=== PATIENT | female | born 1935 | race Caucasian/White ===

== ENCOUNTER 2016-10-14 08:26 | Inpatient (IN) | payer MEDICARE, OTHER ==
[~2016-10-14] VITALS: Ht 152.4 cm; Wt 59.6 kg
[~2016-10-14 08:26] MED LIST: AMLO5TAB2 PO; CYCL5TAB PO; LISI-334 PO; METO100T11 PO; TRAM50TA PO; WARF5TAB7 PO
--- NOTE | 2016-10-14 08:29 | PHYS DOC ---
Past Medical History Past Medical History: A-Fib, CVA, High Cholesterol, Hypertension, Hypothyroid, UTI Past Surgical History: Cancer Surgery, Hysterectomy, Pacemaker Additional Past Surgical Histo: right ovary removal, back surgery Alcohol Use: None Drug Use: None Adult General HPI HPI Patient is a 81 year old female brought in by EMS for altered mental status that started shortly after taking her medications. Reports per shelter is that she received her morning medications and then very shortly afterward became unresponsive with pinpoint pupils. EMS arrived and gave her 2 mg of IV Narcan and she woke up 20 seconds afterwards. They said that she hadn't no response and was breathing shallow and slowly but perked up very shortly after the Narcan. Patient has no opioids on her medication list and shelter denies making any mistakes in her medications. Patient says that she feels horrible but has no specific complaints other than she has no idea what happened. Patient is having some dry heaving and had a very large bowel movement. Review of Systems Review of Systems Constitutional: Denies fever or chills [] Eyes: Denies change in visual acuity, redness, or eye pain [] HENT: Denies nasal congestion or sore throat [] Respiratory: Denies cough or shortness of breath [] Cardiovascular: No additional information not addressed in HPI [] GI: Denies abdominal pain. + nausea. No vomiting, bloody stools or diarrhea [] : Denies dysuria or hematuria [] Musculoskeletal: Denies back pain or joint pain [] Integument: Denies rash or skin lesions [] Neurologic: Denies headache, focal weakness or sensory changes [] Current Medications Current Medications Current Medications Medications (Trade) Dose Ordered Sig/Erin Start Time Stop Time Status Last Admin Dose Admin Ondansetron HCl (Zofran) 8 mg 1X ONCE 10/14/16 08:45 10/14/16 08:46 DC 10/14/16 08:57 8 MG Sodium Chloride 1,000 ml @ 1,000 mls/hr 1X ONCE 10/14/16 08:45 10/14/16 09:44 DC 10/14/16 09:02 1,000 MLS/HR Allergies Allergies Allergies Coded Allergies Type Severity Reaction Last Updated Verified codeine Allergy Intermediate Unknown 10/14/13 Yes meperidine Allergy Intermediate 10/14/13 Yes morphine Allergy Intermediate Nausea and Vomiting 03/06/14 Yes Physical Exam Physical Exam Constitutional: Well developed, well nourished, no acute distress, non-toxic appearance. [] HENT: Normocephalic, atraumatic, bilateral external ears normal, oropharynx moist, no oral exudates, nose normal. [] Eyes: PERRLA, EOMI, conjunctiva normal, no discharge. [] Neck: Normal range of motion, no tenderness, supple, no stridor. [] Cardiovascular:Heart rate regular rhythm, no murmur [] Lungs & Thorax: Bilateral breath sounds clear to auscultation [] Abdomen: Bowel sounds normal, soft, no tenderness, no masses, no pulsatile masses. [] Skin: Warm, dry, no erythema, no rash. [] Back: No tenderness, no CVA tenderness. [] Extremities: No tenderness, no cyanosis, no clubbing, ROM intact, no edema. [] Neurologic: Alert and oriented X 3, normal motor function, normal sensory function, no focal deficits noted. [] Current Patient Data Vital Signs Vital Signs Date Time Temp Pulse Resp B/P (MAP) Pulse Ox O2 Delivery O2 Flow Rate FiO2 10/14/16 09:30 108 24 108/64 (79) 97 10/14/16 08:26 98.8 Room Air 98.8 Lab Values Laboratory Tests Test 10/14/16 08:35 10/14/16 08:52 White Blood Count 5.8 x10^3/uL (4.0-11.0) Red Blood Count 4.05 x10^6/uL (3.50-5.40) Hemoglobin 12.6 g/dL (12.0-15.5) Hematocrit 38.4 % (36.0-47.0) Mean Corpuscular Volume 95 fL (79-100) Mean Corpuscular Hemoglobin 31 pg (25-35) Mean Corpuscular Hemoglobin Concent 33 g/dL (31-37) Red Cell Distribution Width 14.4 % (11.5-14.5) Platelet Count 362 x10^3/uL (140-400) Neutrophils (%) (Auto) 67 % (31-73) Lymphocytes (%) (Auto) 23 % (24-48) L Monocytes (%) (Auto) 9 % (0-9) Eosinophils (%) (Auto) 1 % (0-3) Basophils (%) (Auto) 1 % (0-3) Neutrophils # (Auto) 3.9 x10^3uL (1.8-7.7) Lymphocytes # (Auto) 1.3 x10^3/uL (1.0-4.8) Monocytes # (Auto) 0.5 x10^3/uL (0.0-1.1) Eosinophils # (Auto) 0.1 x10^3/uL (0.0-0.7) Basophils # (Auto) 0.1 x10^3/uL (0.0-0.2) Prothrombin Time 33.3 SEC (11.7-14.0) H Prothrombin Time INR 3.5 (0.8-1.1) H Sodium Level 136 mmol/L (136-145) Potassium Level 3.9 mmol/L (3.5-5.1) Chloride Level 102 mmol/L (98-107) Carbon Dioxide Level 26 mmol/L (21-32) Anion Gap 8 (6-14) Blood Urea Nitrogen 16 mg/dL (7-20) Creatinine 1.1 mg/dL (0.6-1.0) H Estimated GFR (Cockcroft-Gault) 47.7 BUN/Creatinine Ratio 15 (6-20) Glucose Level 170 mg/dL (70-99) H Calcium Level 9.0 mg/dL (8.5-10.1) Magnesium Level 1.9 mg/dL (1.8-2.4) Total Bilirubin 0.6 mg/dL (0.2-1.0) Aspartate Amino Transferase (AST) 24 U/L (15-37) Alanine Aminotransferase (ALT) 24 U/L (14-59) Alkaline Phosphatase 53 U/L (46-116) Creatine Kinase 32 U/L (26-192) Troponin I Quantitative < 0.017 ng/mL (0.000-0.055) Total Protein 6.9 g/dL (6.4-8.2) Albumin 3.6 g/dL (3.4-5.0) Albumin/Globulin Ratio 1.1 (1.0-1.7) Thyroid Stimulating Hormone (TSH) 8.278 uIU/mL (0.358-3.74) H Salicylates Level < 2.8 mg/dL (2.8-20.0) L Salicylate Last Dose Date Unknown Salicylate Last Dose Time Unknown Acetaminophen Level < 2 mcg/ml (10-30) L Acetaminophen Last Dose Date Unknown Acetaminophen Last Dose Time Unknown Ethyl Alcohol Level < 10 mg/dL (0-10) Urine Collection Type U cath Urine Color Evelin Urine Clarity Clear Urine pH 5.5 Urine Specific [place] 1.020 Urine Protein Negative mg/dL (NEG-TRACE) Urine Glucose (UA) Negative mg/dL (NEG) Urine Ketones (Stick) Negative mg/dL (NEG) Urine Blood Negative (NEG) Urine Nitrite Negative (NEG) Urine Bilirubin Small (NEG) Urine Urobilinogen Dipstick 0.2 mg/dL (0.2 mg/dL) Urine Leukocyte Esterase Negative (NEG) Urine RBC 0 /HPF (0-2) Urine WBC 0 /HPF (0-4) Urine Amorphous Sediment Present /HPF Urine Bacteria 0 /HPF (0-FEW) Urine Hyaline Casts Few /HPF Urine Opiates Screen Neg (NEG) Urine Methadone Screen Neg (NEG) Urine Barbiturates Neg (NEG) Urine Phencyclidine Screen Neg (NEG) Urine Amphetamine/Methamphetamine Neg (NEG) Urine Benzodiazepines Screen Neg (NEG) Urine Cocaine Screen Neg (NEG) Urine Cannabinoids Screen Neg (NEG) Urine Ethyl Alcohol Neg (NEG) Laboratory Tests 10/14/16 08:35 Laboratory Tests 10/14/16 08:35 EKG EKG A. fib at 66 bpm with leftward axis no obvious ST elevation or depression with inverted T waves in leads V4 through V6 Radiology/Procedures Radiology/Procedures Clinical Indication: Altered mental status. Technique: Study is dated October 14, 2016. CT images of the head were obtained from the skull base to the vertex without IV contrast. There are no comparison studies available. One or more of the following individualized dose reduction techniques were utilized for this examination: 1. Automated exposure control 2. Adjustment of the mA and/or kV according to patient size 3. Use of iterative reconstruction technique Findings: There is diffuse, symmetric prominence of the ventricles and subarachnoid spaces consistent with age-related parenchymal volume loss. There are areas of scattered decreased attenuation in the supratentorial white matter. While nonspecific, findings are likely secondary to small vessel ischemic disease. There is no hemorrhage, extraaxial fluid collection, mass, or midline shift. There is no large vascular distribution infarct. The posterior fossa and brain stem are unremarkable. Orbits are normal. The visualized paranasal sinuses are clear. There is no skull fracture appreciated on bone level images. Impression: No acute intracranial findings. Brain parenchymal volume loss and mild probable small vessel ischemic disease. DICTATED and SIGNED BY: DEVYN GAINES MD DATE: 10/14/16 1002 Course & Med Decision Making Course & Med Decision Making Despite the nursing homes claiming that there was no mistakes made she has a classic response to an opioid overdose as she responded to Narcan within 20 seconds and had pinpoint pupils. Patient had large bowel movement and continued to be nauseated in the emergency department. She is still slightly off per the son. Given her acute change and she is not completely back to baseline and will admit for further observation and treatment. Dragon Disclaimer Dragon Disclaimer This electronic medical record was generated, in whole or in part, using a voice recognition dictation system. Departure Departure Impression: Primary Impression: Opioid overdose Additional Impression: Encephalopathy acute Disposition: 09 ADMITTED INPATIENT Admitting Physician: Lucila Terry Condition: STABLE Referrals: [facility] GARLAND (PCP) Problem Qualifiers Primary Impression: Opioid overdose Encounter type: initial encounter Injury intent: accidental or unintentional Qualified Codes: T40.2X1A - Poisoning by other opioids, accidental (unintentional), initial encounter HERNANDO CASTRO DO October 14, 2016 08:29
[2016-10-14] MEDS ORDERED: ONDANSETRON PF 4 MG/2 ML VIAL. IV ONE (08:45)
[2016-10-14] MEDS ORDERED: IV NORMAL SALINE 1000ML BAG 1,000 ML IV ONE (08:45)
[2016-10-14 08:51] LABS: BASO # 0.1 x10^3/uL (0.0-0.2); BASO % 1 % (0-3); EOS % 1 % (0-3); HEMATOCRIT 38.4 % (36.0-47.0); HEMOGLOBIN 12.6 g/dL (12.0-15.5); LYMPH # 1.3 x10^3/uL (1.0-4.8); LYMPH % 23 % (24-48); MEAN CORPUSCULAR HEMOGLOBIN 31 pg (25-35); MEAN CORPUSCULAR HGB CONC 33 g/dL (31-37); MEAN CORPUSCULAR VOLUME 95 fL (79-100); MONO % 9 % (0-9); NEUT % 67 % (31-73); PLATELET COUNT 362 x10^3/uL (140-400); RED BLOOD COUNT 4.05 x10^6/uL (3.50-5.40); RED CELL DISTRIBUTION WIDTH 14.4 % (11.5-14.5); WHITE BLOOD COUNT 5.8 x10^3/uL (4.0-11.0)
[2016-10-14 09:02] LABS: INR 3.5 (0.8-1.1); PROTHROMBIN TIME PATIENT 33.3 SEC (11.7-14.0)
[2016-10-14 09:03] LABS: CREATININE 1.1 mg/dL (0.6-1.0); GFR 47.7; POTASSIUM 3.9 mmol/L (3.5-5.1)
[2016-10-14 09:06] LABS: ETHANOL < 10 mg/dL (0-10)
[2016-10-14 09:09] LABS: BILIRUBIN,URINE SMALL (NEG); GLUCOSE,URINE NEGATIVE (NEG); NITRITE,URINE NEGATIVE (NEG); PH,URINE 5.5; PROTEIN,URINE NEGATIVE (NEG-TRACE); UROBILINOGEN,URINE 0.2 mg/dL (0.2 mg/dL)
[2016-10-14 09:09] LABS: ALBUMIN 3.6 g/dL (3.4-5.0); ALBUMIN/GLOBULIN RATIO 1.1 (1.0-1.7); MAGNESIUM 1.9 mg/dL (1.8-2.4); TOTAL BILIRUBIN 0.6 mg/dL (0.2-1.0); TOTAL PROTEIN 6.9 g/dL (6.4-8.2)
--- NOTE | 2016-10-14 09:09 | ACF ---
Admission Forms Criteria DRUG INGESTION OR OVERDOSE Clinical Indications for Admission to Inpatient Care ( Place 'X' for any and all applicable criteria): Admission is indicated for severe toxicity as indicated by ANY ONE of the following(1)(2)(3)(4)(5)(6): [X]I. Inpatient admission required rather than observation care (Also use Drug Ingestion or Overdose: Observation Care guideline as appropriate) because of ANY ONE of the following: [X]a) Altered mental status that is severe or persistent [ ]b) Clinical finding (eg, metabolic acidosis, hypoglycemia, bradycardia) that is severe or persistent [ ]c) Toxic drug level that is persistent [ ]d) Psychiatric risk status not acceptable for outpatient management [ ]e) Continuous intravenous infusion of anticoagulation, platelet inhibitor, vasoactive, or antiarrhythmic medication (15)(16) [ ]f) Other condition, treatment or monitoring requiring inpatient admission [ ]II. Respiratory abnormalities [ ]III. Specific finding indicating severe and likely prolonged drug toxicity [ ]IV. Hemodynamic instability [ ]V. Dangerous arrhythmia [ ]. Hypertension requiring inpatient treatment Extended stay beyond goal length of stay may be needed for (4): [ ]a) Neurologic or respiratory compromise [ ]b) Hemodynamic instability [ ]c) Persistent toxic drug levels (25) [ ]d) Severe drug toxicities or complications [ ]e) Ongoing antidote treatment (eg, acetaminophen overdose)(5) [ ]f) Older patients(65 years or older) The original [employer] content created by [employer] has been revised. The portions of the content which have been revised are identified through the use of italic text or in bold, and [facility] [employer] has neither reviewed nor approved the modified material. All other unmodified content is copyright [facility] [employer]. Please see references footnoted in the original [facility] edition 2016 Admission Criteria Met?: Yes SP MCHUGH October 14, 2016 09:09
[2016-10-14 09:27] LABS: BACTERIA,URINE 0 /HPF (0-FEW); RBC,URINE 0 /HPF (0-2); WBC,URINE 0 /HPF (0-4)
[2016-10-14 09:30] LABS: BARBITURATES NEG (NEG); BENZODIAZEPINES NEG (NEG); CANNABINOIDS NEG (NEG); COCAINE NEG (NEG); METHADONE NEG (NEG); OPIATES NEG (NEG); PHENCYCLIDINE NEG (NEG)
--- NOTE | 2016-10-14 10:06 | RAD ---
Clinical Indication: Altered mental status. Technique: Study is dated October 14, 2016. CT images of the head were obtained from the skull base to the vertex without IV contrast. There are no comparison studies available. One or more of the following individualized dose reduction techniques were utilized for this examination: 1. Automated exposure control 2. Adjustment of the mA and/or kV according to patient size 3. Use of iterative reconstruction technique Findings: There is diffuse, symmetric prominence of the ventricles and subarachnoid spaces consistent with age-related parenchymal volume loss. There are areas of scattered decreased attenuation in the supratentorial white matter. While nonspecific, findings are likely secondary to small vessel ischemic disease. There is no hemorrhage, extraaxial fluid collection, mass, or midline shift. There is no large vascular distribution infarct. The posterior fossa and brain stem are unremarkable. Orbits are normal. The visualized paranasal sinuses are clear. There is no skull fracture appreciated on bone level images. Impression: No acute intracranial findings. Brain parenchymal volume loss and mild probable small vessel ischemic disease.
[2016-10-14] MEDS ORDERED: ONDANSETRON PF 4 MG/2 ML VIAL. IV PRN (10:15)
[2016-10-14 11:15] VITALS: BP 112/73
[2016-10-14 11:40] VITALS: BP 125/68
--- NOTE | 2016-10-14 11:40 | EKG ---
[facility] [address] [place] [address] Test Date: 2016-10-14 Test Time: 10:33:59 Pat Name: DANO MARTINEZ Department: Room: 652 1 Gender: F Bulk Fluids Handler: : [id number] Requested By: HERNANDO CASTRO Order Number: [id number] Reading MD: Concha Salgado Measurements Intervals [place] Rate: 111 P: 77 NV: 86 QRS: -5 QRSD: 80 T: -99 QT: 370 QTc: 507 Interpretive Statements CORONARY SINUS RHYTHM LEFTWARD AXIS ABNORMAL ECG RI6.01 Unconfirmed report No previous ECG available for comparison Electronically Signed On 10-15-2016 21:32:36 CDT by Concha Salgado
[2016-10-14] MEDS ORDERED: PROCHLORPERAZINE 10 MG/2 ML VIAL. IV PRN (12:15)
[2016-10-14] MEDS ORDERED: traMADol 50 MG TABLET PO PRN (12:15)
--- NOTE | 2016-10-14 12:24 | PDOC1 ---
History and Physical Date of Admission Date of Admission DATE: 10/14/16 TIME: 12:15 Identification/Chief Complaint Chief Complaint diarrhea, vomting post narcan at er Problems: Source Source: Caregiver, Chart review, Patient History of Present Illness History of Present Illness Hx obtained mostly from ER MD 81 y.o male resident of [facility], apparently might have been given the wrong medication this AM by staff there. Pt claims the pill look different, after which pt became completely somnolent. Staff denies giving her any AM meds today, BUt at ER arrival, was given narcan and did wake her up fully, Was about to be dcd back to [place] but when diarrhea and vomiting at ER hence decided to admit this elderly on 6th floor for oBS BUt within 30 mins of arrival, on tele monitor, seemed to have at least 6 runs of non sustained vtach, occurred few secs apart. Pt denies palpitation, complains of grumbling stomach,. EKG 12 lead done, shows atrial fib, RVR rate low 100s. 2 Bros at bedside (not the best hostorian either), relays indwelling pacer x 7 yrs now, PCP dr Hernandez but no OP cards, LOoking at home meds, on rate controlling agents and warfarin, INR is 3.5 Past Medical History Cardiovascular: AFIB, HTN Past Surgical History Past Surgical History: Other (pacer) Family History Family History: Hypertension Social History Smoke: No ALCOHOL: none Drugs: None Current Problem List Problem List Problems Medical Problems: (1) Encephalopathy acute Status: Acute (2) Opioid overdose Status: Acute Problems: Current Medications Current Medications Current Medications Sodium Chloride 1,000 ml @ 1,000 mls/hr 1X ONCE IV Last administered on 09:02; Start 10/14/16 at 08:45; Stop 10/14/16 at 09:44; Status DC Ondansetron HCl (Zofran) 8 mg 1X ONCE IV Last administered on 10/14/16 08:57 ; Start 10/14/16 at 08:45; Stop 10/14/16 at 08:46; Status DC Ondansetron HCl (Zofran) 4 mg PRN Q8HRS PRN IV NAUSEA/VOMITING Last administered on 10/14/16 10:36; Start 10/14/16 at 10:15; Stop 10/15/16 at 10:14 Active Scripts Active Reported Tramadol Hcl 50 Mg Tablet 50 Mg PO Warfarin Sodium 5 Mg Tablet 5 Mg PO Metoprolol Succinate 100 Mg Tab.er.24h 100 Mg PO Lisinopril 20 Mg Tablet 20 Mg PO Amlodipine Besylate 5 Mg Tablet 5 Mg PO Cyclobenzaprine Hcl 5 Mg Tablet 5 Mg PO Allergies Allergies: Coded Allergies: codeine (Verified Allergy, Intermediate, Unknown, 10/14/13) meperidine (Verified Allergy, Intermediate, 10/14/13) morphine (Verified Allergy, Intermediate, Nausea and Vomiting, 03/06/14) ROS General: No: Chills, Night Sweats, Fatigue, Malaise, Appetite, Other PSYCHOLOGICAL ROS: No: Anxiety, Behavioral Disorder, Concentration difficultie , Decreased libido, Depression, Disorientation, Hallucinations, Hostility, Irritablity, Memory difficulties, Mood Swings, Obsessive thoughts, Physical abuse, Sexual abuse, Sleep disturbances, Suicidal ideation, Other Eyes: No Blurry vision, No Decreased vision, No Double vision, No Dry eyes, No Excessive tearing, No Eye Pain, No Itchy Eyes, No Loss of vision, No Photophobia , No Scotomata, No Uses contacts, No Uses glasses, No Other HEENT: No: Heacaches, Visual Changes, Hearing change, Nasal congestion, Nasal discharge, Oral lesions, Sinus pain, Sore Throat, Epistaxis, Sneezing, Snoring, Tinnitus, Vertigo, Vocal changes, Other ALLERGY AND IMMUNOLOGY: No: Hives, Insect Bite Sensitivity, Itchy/Watery Eyes, Nasal Congestion, Post Nasal Drip, Seasonal Allergies, Other Hematological and Lymphatic: No: Bleeding Problems, Blood Clots, Blood Transfusions, Brusing, Night Sweats, Pallor, Swollen Lymph Nodes, Other ENDOCRINE: No: Breast Changes, Galactorrhea, Hair Pattern Changes, Hot Flashes , Malaise/lethargy, Mood Swings, Palpitations, Polydipsia/polyuria, Skin Changes , Temperature Intolerance, Unexpected Weight Changes, Other Breast: No New/Changing Breast Lumps, No Nipple changes, No Nipple discharge, No Other Respiratory: No: Cough, Hemoptysis, Orthopnea, Pleuritic Pain, Shortness of breath, SOB with excertion, Sputum Changes, Stridor, Tachypnea, Wheezing, Other Cardiovascular: No Chest Pain, No Palpitations, No Orthopnea, No Paroxysmal Noc. Dyspnea, No Edema, No Lt Headedness, No Other Gastrointestinal: Yes Nausea, Yes Abdominal Pain Genitourinary: No Dysuria, No Frequency, No Incontinence, No Hematuria, No Retention, No Discharge, No Urgency, No Pain, No Flank Pain, No Other, No , No , No , No , No , No , No Musculoskeletal: No Gait Disturbance, No Joint Pain, No Joint Stiffness, No Joint Swelling, No Muscle Pain, No Muscular Weakness, No Pain In:, No Swelling In:, No Other Neurological: No Behavorial Changes, No Bowel/Bladder ControlChng, No Confusion , No Dizziness, No Gait Disturbance, No Headaches, No Impaired Coord/balance, No Memory Loss, No Numbness/Tingling, No Seizures, No Speech Problems, No Tremors, No Visual Changes, No Weakness, No Other Skin: No Dry Skin, No Eczema, No Hair Changes, No Lumps, No Mole Changes, No Mottling, No Nail Changes, No Pruritus, No Rash, No Skin Lesion Changes, No Other, No Acne Physical Exam General: Alert, Oriented X3, Cooperative, No acute distress HEENT: Atraumatic, PERRLA Lungs: Clear to auscultation, Normal air movement Heart: S1S2, RRR, no thrills, no rubs, no gallops, no murmurs Cardiovascular: S1, Other (Irregularly irreg) Breasts: Normal Abdomen: Normal bowel sounds, Soft, No tenderness, No hepatosplenomegaly, No masses Rectal Exam: not examined, mass PELVIC: Nml ext genitalia Extremities: No clubbing, No cyanosis, No edema, Normal pulses, No tenderness/ swelling Skin: No rashes, No breakdown, No significant lesion Neuro: Normal gait, Normal speech, Strength at 5/5 X4 ext, Normal tone, Sensation intact, Cranial nerves 3-12 NL, Reflexes 2+ Psych/Mental Status: Mental status NL, Mood NL Vitals Vitals Vital Signs Date Time Temp Pulse Resp B/P (MAP) Pulse Ox O2 Delivery O2 Flow Rate FiO2 10/14/16 11:40 102 16 125/68 (87) 96 Room Air 10/14/16 11:15 97.5 97.5 Labs Labs Laboratory Tests Test 10/14/16 08:35 10/14/16 08:52 White Blood Count 5.8 x10^3/uL (4.0-11.0) Red Blood Count 4.05 x10^6/uL (3.50-5.40) Hemoglobin 12.6 g/dL (12.0-15.5) Hematocrit 38.4 % (36.0-47.0) Mean Corpuscular Volume 95 fL (79-100) Mean Corpuscular Hemoglobin 31 pg (25-35) Mean Corpuscular Hemoglobin Concent 33 g/dL (31-37) Red Cell Distribution Width 14.4 % (11.5-14.5) Platelet Count 362 x10^3/uL (140-400) Neutrophils (%) (Auto) 67 % (31-73) Lymphocytes (%) (Auto) 23 % (24-48) Monocytes (%) (Auto) 9 % (0-9) Eosinophils (%) (Auto) 1 % (0-3) Basophils (%) (Auto) 1 % (0-3) Neutrophils # (Auto) 3.9 x10^3uL (1.8-7.7) Lymphocytes # (Auto) 1.3 x10^3/uL (1.0-4.8) Monocytes # (Auto) 0.5 x10^3/uL (0.0-1.1) Eosinophils # (Auto) 0.1 x10^3/uL (0.0-0.7) Basophils # (Auto) 0.1 x10^3/uL (0.0-0.2) Prothrombin Time 33.3 SEC (11.7-14.0) Prothromb Time International Ratio 3.5 (0.8-1.1) Sodium Level 136 mmol/L (136-145) Potassium Level 3.9 mmol/L (3.5-5.1) Chloride Level 102 mmol/L (98-107) Carbon Dioxide Level 26 mmol/L (21-32) Anion Gap 8 (6-14) Blood Urea Nitrogen 16 mg/dL (7-20) Creatinine 1.1 mg/dL (0.6-1.0) Estimated GFR (Cockcroft-Gault) 47.7 BUN/Creatinine Ratio 15 (6-20) Glucose Level 170 mg/dL (70-99) Calcium Level 9.0 mg/dL (8.5-10.1) Magnesium Level 1.9 mg/dL (1.8-2.4) Total Bilirubin 0.6 mg/dL (0.2-1.0) Aspartate Amino Transf (AST/SGOT) 24 U/L (15-37) Alanine Aminotransferase (ALT/SGPT) 24 U/L (14-59) Alkaline Phosphatase 53 U/L (46-116) Creatine Kinase 32 U/L (26-192) Troponin I Quantitative < 0.017 ng/mL (0.000-0.055) Total Protein 6.9 g/dL (6.4-8.2) Albumin 3.6 g/dL (3.4-5.0) Albumin/Globulin Ratio 1.1 (1.0-1.7) Thyroid Stimulating Hormone (TSH) 8.278 uIU/mL (0.358-3.74) Salicylates Level < 2.8 mg/dL (2.8-20.0) Salicylate Last Dose Date Unknown Salicylate Last Dose Time Unknown Acetaminophen Level < 2 mcg/ml (10-30) Acetaminophen Last Dose Date Unknown Acetaminophen Last Dose Time Unknown Ethyl Alcohol Level < 10 mg/dL (0-10) Urine Collection Type U cath Urine Color Evelin Urine Clarity Clear Urine pH 5.5 Urine Specific [place] 1.020 Urine Protein Negative mg/dL (NEG-TRACE) Urine Glucose (UA) Negative mg/dL (NEG) Urine Ketones (Stick) Negative mg/dL (NEG) Urine Blood Negative (NEG) Urine Nitrite Negative (NEG) Urine Bilirubin Small (NEG) Urine Urobilinogen Dipstick 0.2 mg/dL (0.2 mg/dL) Urine Leukocyte Esterase Negative (NEG) Urine RBC 0 /HPF (0-2) Urine WBC 0 /HPF (0-4) Urine Amorphous Sediment Present /HPF Urine Bacteria 0 /HPF (0-FEW) Urine Hyaline Casts Few /HPF Urine Opiates Screen Neg (NEG) Urine Methadone Screen Neg (NEG) Urine Barbiturates Neg (NEG) Urine Phencyclidine Screen Neg (NEG) Urine Amphetamine/Methamphetamine Neg (NEG) Urine Benzodiazepines Screen Neg (NEG) Urine Cocaine Screen Neg (NEG) Urine Cannabinoids Screen Neg (NEG) Urine Ethyl Alcohol Neg (NEG) Laboratory Tests Test 10/14/16 08:35 10/14/16 08:52 White Blood Count 5.8 x10^3/uL (4.0-11.0) Red Blood Count 4.05 x10^6/uL (3.50-5.40) Hemoglobin 12.6 g/dL (12.0-15.5) Hematocrit 38.4 % (36.0-47.0) Mean Corpuscular Volume 95 fL (79-100) Mean Corpuscular Hemoglobin 31 pg (25-35) Mean Corpuscular Hemoglobin Concent 33 g/dL (31-37) Red Cell Distribution Width 14.4 % (11.5-14.5) Platelet Count 362 x10^3/uL (140-400) Neutrophils (%) (Auto) 67 % (31-73) Lymphocytes (%) (Auto) 23 % (24-48) Monocytes (%) (Auto) 9 % (0-9) Eosinophils (%) (Auto) 1 % (0-3) Basophils (%) (Auto) 1 % (0-3) Neutrophils # (Auto) 3.9 x10^3uL (1.8-7.7) Lymphocytes # (Auto) 1.3 x10^3/uL (1.0-4.8) Monocytes # (Auto) 0.5 x10^3/uL (0.0-1.1) Eosinophils # (Auto) 0.1 x10^3/uL (0.0-0.7) Basophils # (Auto) 0.1 x10^3/uL (0.0-0.2) Prothrombin Time 33.3 SEC (11.7-14.0) Prothromb Time International Ratio 3.5 (0.8-1.1) Sodium Level 136 mmol/L (136-145) Potassium Level 3.9 mmol/L (3.5-5.1) Chloride Level 102 mmol/L (98-107) Carbon Dioxide Level 26 mmol/L (21-32) Anion Gap 8 (6-14) Blood Urea Nitrogen 16 mg/dL (7-20) Creatinine 1.1 mg/dL (0.6-1.0) Estimated GFR (Cockcroft-Gault) 47.7 BUN/Creatinine Ratio 15 (6-20) Glucose Level 170 mg/dL (70-99) Calcium Level 9.0 mg/dL (8.5-10.1) Magnesium Level 1.9 mg/dL (1.8-2.4) Total Bilirubin 0.6 mg/dL (0.2-1.0) Aspartate Amino Transf (AST/SGOT) 24 U/L (15-37) Alanine Aminotransferase (ALT/SGPT) 24 U/L (14-59) Alkaline Phosphatase 53 U/L (46-116) Creatine Kinase 32 U/L (26-192) Troponin I Quantitative < 0.017 ng/mL (0.000-0.055) Total Protein 6.9 g/dL (6.4-8.2) Albumin 3.6 g/dL (3.4-5.0) Albumin/Globulin Ratio 1.1 (1.0-1.7) Thyroid Stimulating Hormone (TSH) 8.278 uIU/mL (0.358-3.74) Salicylates Level < 2.8 mg/dL (2.8-20.0) Salicylate Last Dose Date Unknown Salicylate Last Dose Time Unknown Acetaminophen Level < 2 mcg/ml (10-30) Acetaminophen Last Dose Date Unknown Acetaminophen Last Dose Time Unknown Ethyl Alcohol Level < 10 mg/dL (0-10) Urine Collection Type U cath Urine Color Evelin Urine Clarity Clear Urine pH 5.5 Urine Specific [place] 1.020 Urine Protein Negative mg/dL (NEG-TRACE) Urine Glucose (UA) Negative mg/dL (NEG) Urine Ketones (Stick) Negative mg/dL (NEG) Urine Blood Negative (NEG) Urine Nitrite Negative (NEG) Urine Bilirubin Small (NEG) Urine Urobilinogen Dipstick 0.2 mg/dL (0.2 mg/dL) Urine Leukocyte Esterase Negative (NEG) Urine RBC 0 /HPF (0-2) Urine WBC 0 /HPF (0-4) Urine Amorphous Sediment Present /HPF Urine Bacteria 0 /HPF (0-FEW) Urine Hyaline Casts Few /HPF Urine Opiates Screen Neg (NEG) Urine Methadone Screen Neg (NEG) Urine Barbiturates Neg (NEG) Urine Phencyclidine Screen Neg (NEG) Urine Amphetamine/Methamphetamine Neg (NEG) Urine Benzodiazepines Screen Neg (NEG) Urine Cocaine Screen Neg (NEG) Urine Cannabinoids Screen Neg (NEG) Urine Ethyl Alcohol Neg (NEG) VTE Prophylaxis Ordered VTE Prophylaxis Devices: Yes VTE Pharmacological Prophylaxi: Yes Assessment/Plan Assessment/Plan 1. Toxic encephalopathy likely from a narcotic like agent, accidental -outside of hospital event, RESPONDED to narcan 2. Emesis and diarrhea post narcan 3. Known atrial fib, in RVR now, on AC 4. NOn sustained vtach 5. ELderly, geriatric, fall risk, mild to mod PCM 6. Mildy supratherapeutic INR PLAN: TRansfer to CVC RAte control the arrhythmia HOld coumadin INR kobe Anti emetics Send for stool studies if diarrhea persist BMP kobe if diarrhea persists IVF if diarrhea persists SCDs PT/OT Resume PO rate controlling agents from home Dw multiple RN, Dr. Delia Andino time - was a rapid YESSICA ARNETT MD October 14, 2016 12:24
[2016-10-14] MEDS ORDERED: FURO20TA3 PO (13:22)
[2016-10-14] MEDS ORDERED: LACT1CAP2 PO (13:22)
[2016-10-14] MEDS ORDERED: LEVO137T3 PO (13:24)
[2016-10-14] MEDS ORDERED: MULT1CAP15 PO (13:26)
[2016-10-14] MEDS ORDERED: CHOL2000 PO (13:27)
[2016-10-14] MEDS ORDERED: COLE1TAB2 PO (13:28)
[2016-10-14] MEDS ORDERED: WARF2TAB7 PO (13:30)
[2016-10-14] MEDS ORDERED: WARF3TAB7 PO (13:31)
[2016-10-14] MEDS ORDERED: NYST15CR TP (13:44)
[2016-10-14] MEDS ORDERED: DOCU100C5 PO (13:48)
[2016-10-14] MEDS ORDERED: MECL25TA3 PO (13:48)
[2016-10-14] MEDS ORDERED: ACET500T68 PO (13:48)
[2016-10-14] MEDS ORDERED: POLY255P PO (13:50)
[2016-10-14 14:31] VITALS: BP 107/56
--- NOTE | 2016-10-14 14:42 | EKG ---
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
--- NOTE | 2016-10-14 15:26 | PDOC2 ---
CONSULT Date of Consult Date of Consult DATE: 10/14/16 TIME: 15:17 Reason for Consult Reason for Consult: arrhythmias Referring Physician Referring Physician: Dr. Terry Identification/Chief Complaint Chief Complaint Decreased level of consciousness Source Source: Chart review History of Present Illness Reason for Visit: The patient is an 81 year old female who had decreased level of consciousness last evening and was sent from her longterm. She reportedly received Narcan thatb improved her mental status. She also has a history of atrial fib. and a pacemaker. The patient had brief episodes of NSVT by report. At present she is comfortable and alert. She is in a regular paced rhythm. She denies chest pain, SOB or dizziness. Past Medical History Cardiovascular: AFIB, HTN Past Surgical History Past Surgical History: Other (pacemaker) Family History Family History: Hypertension Social History No ALCOHOL: none Drugs: None Current Problem List Problem List Problems Medical Problems: (1) Encephalopathy acute Status: Acute (2) Opioid overdose Status: Acute Current Medications Current Medications Current Medications Sodium Chloride 1,000 ml @ 1,000 mls/hr 1X ONCE IV Last administered on 09:02; Start 10/14/16 at 08:45; Stop 10/14/16 at 09:44; Status DC Ondansetron HCl (Zofran) 8 mg 1X ONCE IV Last administered on 10/14/16 08:57 ; Start 10/14/16 at 08:45; Stop 10/14/16 at 08:46; Status DC Ondansetron HCl (Zofran) 4 mg PRN Q8HRS PRN IV NAUSEA/VOMITING Last administered on 10/14/16 10:36; Start 10/14/16 at 10:15; Stop 10/15/16 at 10:14 Amlodipine Besylate (Norvasc) 5 mg DAILY PO ; Start 10/15/16 at 09:00 Lisinopril (Prinivil) 20 mg DAILY PO ; Start 10/15/16 at 09:00 Metoprolol Succinate (Toprol Xl) 100 mg DAILY PO ; Start 10/15/16 at 09:00 Tramadol HCl (Ultram) 50 mg PRN TID PRN PO pain; Start 10/14/16 at 12:15 Warfarin Sodium (Coumadin Per Pharmacy) 1 each PRN DAILY PRN MC SEE COMMENTS Last administered on 5/21/17at 14:08; Start 10/14/16 at 12:15 Warfarin Sodium (Coumadin - No Dose Today) 1 each 1X WARF ONCE MC ; Start 10/14 at 16:00; Stop 10/14/16 at 16:01 Prochlorperazine Edisylate (Compazine) 10 mg PRN Q6HRS PRN IV NAUSEA/VOMITING; Start 10/14/16 at 12:15 Active Scripts Active Reported Polyethylene Glycol 3350 255 Gm Powder 17 Gm PO PRN DAILY PRN Docusate Sodium 100 Mg Capsule 1 Cap PO PRN BID PRN Acetaminophen 500 Mg Tablet 2 Tab PO PRN QID PRN Meclizine Hcl 25 Mg Tablet 1 Tab PO PRN TID PRN Nystatin 15 Gm Cream..g. 1 Chris TP PRN PRN Warfarin Sodium 3 Mg Tablet 1 Tab PO QMWF Warfarin Sodium 2 Mg Tablet 1 Tab PO QTUTHSASU Colestipol Hcl 1 Gm Tablet 1 Gm PO BID Vitamin D (Cholecalciferol (Vitamin D3)) 2,000 Unit Capsule 1 Cap PO DAILY Multivitamins (Multivitamin) 1 Each Capsule 1 Each PO DAILY Levothyroxine Sodium 137 Mcg Tablet 137 Mcg PO DAILYAC Furosemide 20 Mg Tablet 1 Tab PO DAILY Acidophilus (Lactobacillus Acidophilus) 1 Each Capsule 1 Each PO DAILY Tramadol Hcl 50 Mg Tablet 50 Mg PO Metoprolol Succinate ( Xl ) (Metoprolol Succinate) 100 Mg Tab.er.24h 100 Mg PO Lisinopril 20 Mg Tablet 20 Mg PO Amlodipine Besylate 5 Mg Tablet 5 Mg PO Cyclobenzaprine Hcl 5 Mg Tablet 5 Mg PO Allergies Allergies: Coded Allergies: codeine (Verified Allergy, Intermediate, Unknown, 10/14/13) meperidine (Verified Allergy, Intermediate, 10/14/13) morphine (Verified Allergy, Intermediate, Nausea and Vomiting, 03/06/14) ROS General: YES: Fatigue Physical Exam General: No acute distress HEENT: Atraumatic Lungs: Clear to auscultation Heart: Regular rate Abdomen: Normal bowel sounds Extremities: No clubbing Vitals VITALS Vital Signs Date Time Temp Pulse Resp B/P (MAP) Pulse Ox O2 Delivery O2 Flow Rate FiO2 10/14/16 14:31 97.4 64 18 107/56 (73) 95 Room Air 97.4 Labs Labs Laboratory Tests Test 10/14/16 08:35 10/14/16 08:52 White Blood Count 5.8 x10^3/uL (4.0-11.0) Red Blood Count 4.05 x10^6/uL (3.50-5.40) Hemoglobin 12.6 g/dL (12.0-15.5) Hematocrit 38.4 % (36.0-47.0) Mean Corpuscular Volume 95 fL (79-100) Mean Corpuscular Hemoglobin 31 pg (25-35) Mean Corpuscular Hemoglobin Concent 33 g/dL (31-37) Red Cell Distribution Width 14.4 % (11.5-14.5) Platelet Count 362 x10^3/uL (140-400) Neutrophils (%) (Auto) 67 % (31-73) Lymphocytes (%) (Auto) 23 % (24-48) Monocytes (%) (Auto) 9 % (0-9) Eosinophils (%) (Auto) 1 % (0-3) Basophils (%) (Auto) 1 % (0-3) Neutrophils # (Auto) 3.9 x10^3uL (1.8-7.7) Lymphocytes # (Auto) 1.3 x10^3/uL (1.0-4.8) Monocytes # (Auto) 0.5 x10^3/uL (0.0-1.1) Eosinophils # (Auto) 0.1 x10^3/uL (0.0-0.7) Basophils # (Auto) 0.1 x10^3/uL (0.0-0.2) Prothrombin Time 33.3 SEC (11.7-14.0) Prothromb Time International Ratio 3.5 (0.8-1.1) Sodium Level 136 mmol/L (136-145) Potassium Level 3.9 mmol/L (3.5-5.1) Chloride Level 102 mmol/L (98-107) Carbon Dioxide Level 26 mmol/L (21-32) Anion Gap 8 (6-14) Blood Urea Nitrogen 16 mg/dL (7-20) Creatinine 1.1 mg/dL (0.6-1.0) Estimated GFR (Cockcroft-Gault) 47.7 BUN/Creatinine Ratio 15 (6-20) Glucose Level 170 mg/dL (70-99) Calcium Level 9.0 mg/dL (8.5-10.1) Magnesium Level 1.9 mg/dL (1.8-2.4) Total Bilirubin 0.6 mg/dL (0.2-1.0) Aspartate Amino Transf (AST/SGOT) 24 U/L (15-37) Alanine Aminotransferase (ALT/SGPT) 24 U/L (14-59) Alkaline Phosphatase 53 U/L (46-116) Creatine Kinase 32 U/L (26-192) Troponin I Quantitative < 0.017 ng/mL (0.000-0.055) Total Protein 6.9 g/dL (6.4-8.2) Albumin 3.6 g/dL (3.4-5.0) Albumin/Globulin Ratio 1.1 (1.0-1.7) Thyroid Stimulating Hormone (TSH) 8.278 uIU/mL (0.358-3.74) Salicylates Level < 2.8 mg/dL (2.8-20.0) Salicylate Last Dose Date Unknown Salicylate Last Dose Time Unknown Acetaminophen Level < 2 mcg/ml (10-30) Acetaminophen Last Dose Date Unknown Acetaminophen Last Dose Time Unknown Ethyl Alcohol Level < 10 mg/dL (0-10) Urine Collection Type U cath Urine Color Evelin Urine Clarity Clear Urine pH 5.5 Urine Specific [place] 1.020 Urine Protein Negative mg/dL (NEG-TRACE) Urine Glucose (UA) Negative mg/dL (NEG) Urine Ketones (Stick) Negative mg/dL (NEG) Urine Blood Negative (NEG) Urine Nitrite Negative (NEG) Urine Bilirubin Small (NEG) Urine Urobilinogen Dipstick 0.2 mg/dL (0.2 mg/dL) Urine Leukocyte Esterase Negative (NEG) Urine RBC 0 /HPF (0-2) Urine WBC 0 /HPF (0-4) Urine Amorphous Sediment Present /HPF Urine Bacteria 0 /HPF (0-FEW) Urine Hyaline Casts Few /HPF Urine Opiates Screen Neg (NEG) Urine Methadone Screen Neg (NEG) Urine Barbiturates Neg (NEG) Urine Phencyclidine Screen Neg (NEG) Urine Amphetamine/Methamphetamine Neg (NEG) Urine Benzodiazepines Screen Neg (NEG) Urine Cocaine Screen Neg (NEG) Urine Cannabinoids Screen Neg (NEG) Urine Ethyl Alcohol Neg (NEG) Laboratory Tests Test 10/14/16 08:35 10/14/16 08:52 White Blood Count 5.8 x10^3/uL (4.0-11.0) Red Blood Count 4.05 x10^6/uL (3.50-5.40) Hemoglobin 12.6 g/dL (12.0-15.5) Hematocrit 38.4 % (36.0-47.0) Mean Corpuscular Volume 95 fL (79-100) Mean Corpuscular Hemoglobin 31 pg (25-35) Mean Corpuscular Hemoglobin Concent 33 g/dL (31-37) Red Cell Distribution Width 14.4 % (11.5-14.5) Platelet Count 362 x10^3/uL (140-400) Neutrophils (%) (Auto) 67 % (31-73) Lymphocytes (%) (Auto) 23 % (24-48) Monocytes (%) (Auto) 9 % (0-9) Eosinophils (%) (Auto) 1 % (0-3) Basophils (%) (Auto) 1 % (0-3) Neutrophils # (Auto) 3.9 x10^3uL (1.8-7.7) Lymphocytes # (Auto) 1.3 x10^3/uL (1.0-4.8) Monocytes # (Auto) 0.5 x10^3/uL (0.0-1.1) Eosinophils # (Auto) 0.1 x10^3/uL (0.0-0.7) Basophils # (Auto) 0.1 x10^3/uL (0.0-0.2) Prothrombin Time 33.3 SEC (11.7-14.0) Prothromb Time International Ratio 3.5 (0.8-1.1) Sodium Level 136 mmol/L (136-145) Potassium Level 3.9 mmol/L (3.5-5.1) Chloride Level 102 mmol/L (98-107) Carbon Dioxide Level 26 mmol/L (21-32) Anion Gap 8 (6-14) Blood Urea Nitrogen 16 mg/dL (7-20) Creatinine 1.1 mg/dL (0.6-1.0) Estimated GFR (Cockcroft-Gault) 47.7 BUN/Creatinine Ratio 15 (6-20) Glucose Level 170 mg/dL (70-99) Calcium Level 9.0 mg/dL (8.5-10.1) Magnesium Level 1.9 mg/dL (1.8-2.4) Total Bilirubin 0.6 mg/dL (0.2-1.0) Aspartate Amino Transf (AST/SGOT) 24 U/L (15-37) Alanine Aminotransferase (ALT/SGPT) 24 U/L (14-59) Alkaline Phosphatase 53 U/L (46-116) Creatine Kinase 32 U/L (26-192) Troponin I Quantitative < 0.017 ng/mL (0.000-0.055) Total Protein 6.9 g/dL (6.4-8.2) Albumin 3.6 g/dL (3.4-5.0) Albumin/Globulin Ratio 1.1 (1.0-1.7) Thyroid Stimulating Hormone (TSH) 8.278 uIU/mL (0.358-3.74) Salicylates Level < 2.8 mg/dL (2.8-20.0) Salicylate Last Dose Date Unknown Salicylate Last Dose Time Unknown Acetaminophen Level < 2 mcg/ml (10-30) Acetaminophen Last Dose Date Unknown Acetaminophen Last Dose Time Unknown Ethyl Alcohol Level < 10 mg/dL (0-10) Urine Collection Type U cath Urine Color Evelin Urine Clarity Clear Urine pH 5.5 Urine Specific [place] 1.020 Urine Protein Negative mg/dL (NEG-TRACE) Urine Glucose (UA) Negative mg/dL (NEG) Urine Ketones (Stick) Negative mg/dL (NEG) Urine Blood Negative (NEG) Urine Nitrite Negative (NEG) Urine Bilirubin Small (NEG) Urine Urobilinogen Dipstick 0.2 mg/dL (0.2 mg/dL) Urine Leukocyte Esterase Negative (NEG) Urine RBC 0 /HPF (0-2) Urine WBC 0 /HPF (0-4) Urine Amorphous Sediment Present /HPF Urine Bacteria 0 /HPF (0-FEW) Urine Hyaline Casts Few /HPF Urine Opiates Screen Neg (NEG) Urine Methadone Screen Neg (NEG) Urine Barbiturates Neg (NEG) Urine Phencyclidine Screen Neg (NEG) Urine Amphetamine/Methamphetamine Neg (NEG) Urine Benzodiazepines Screen Neg (NEG) Urine Cocaine Screen Neg (NEG) Urine Cannabinoids Screen Neg (NEG) Urine Ethyl Alcohol Neg (NEG) Assessment/Plan Assessment/Plan 1. Probable metabolic encephalopathy. Improved. Continue present treatment. 2. Pacemaker. Normal function on tele. Will interrogate. 3. Atrial fibrillation. On anticoagulation. Tele,. Continue medications. 4. NSVT. Rhythm now stable. Lab pending. ECHO. Continue present medications. Thank you for allowing us to participate in the care of your patient. JUSTEN GERONIMO MD October 14, 2016 15:26
[2016-10-14] MEDS ORDERED: NYSTATIN 100,000 UNIT/GM TOPICAL CREAM 15GM TUBE. TP PRN (15:45)
[2016-10-14] MEDS ORDERED: NYST15PO9 TP (15:54)
[2016-10-14] MEDS ORDERED: NYSTATIN TOPICAL POWDER 15GM BOTTLE. TP PRN (16:00)
[2016-10-14] MEDS ORDERED: MECLIZINE HCL 12.5 MG TABLET. PO PRN (16:00)
[2016-10-14 18:59] VITALS: BP 111/58
[2016-10-14] MEDS: COLESTIPOL HCL 1 GM TABLET PO SCH (21:17)
[2016-10-14 23:10] VITALS: BP 113/54
[2016-10-15] VITALS (8 sets, daily range): BP systolic 114–158; BP diastolic 58–81
[2016-10-15 04:08] LABS: BASO % 0 % (0-3); EOS % 1 % (0-3); HEMATOCRIT 34.7 % (36.0-47.0); HEMOGLOBIN 11.5 g/dL (12.0-15.5); LYMPH # 1.4 x10^3/uL (1.0-4.8); LYMPH % 21 % (24-48); MEAN CORPUSCULAR HEMOGLOBIN 31 pg (25-35); MEAN CORPUSCULAR HGB CONC 33 g/dL (31-37); MEAN CORPUSCULAR VOLUME 95 fL (79-100); MONO % 14 % (0-9); NEUT % 64 % (31-73); PLATELET COUNT 321 x10^3/uL (140-400); RED BLOOD COUNT 3.67 x10^6/uL (3.50-5.40); WHITE BLOOD COUNT 6.6 x10^3/uL (4.0-11.0)
[2016-10-15 04:38] LABS: CALCIUM 8.9 mg/dL (8.5-10.1); GFR 53.2; POTASSIUM 4.2 mmol/L (3.5-5.1)
[2016-10-15] MEDS: MULTIVITAMIN with MINERAL TABLET. PO SCH (08:43)
[2016-10-15] MEDS: amLODIPine BESYLATE 5 MG TABLET PO SCH (08:44)
[2016-10-15] MEDS: CHOLECALCIFEROL (VITAMIN D3) 1,000 UNIT TABLET PO SCH (08:47)
[2016-10-15] MEDS: METOPROLOL SUCC 24HR ER 100 MG TAB.ER.24H. PO SCH (08:47)
[2016-10-15] MEDS: ACETAMINOPHEN 500 MG TABLET PO PRN (08:47)
[2016-10-15] MEDS: LACTOBACILLUS ACIDOPH & BULGAR 1 TABLET. PO SCH (08:48)
[2016-10-15] MEDS: LISINOPRIL 20 MG TABLET PO SCH (08:48)
[2016-10-15] MEDS: LEVOTHYROXINE 137 MCG TABLET PO SCH (08:48)
[2016-10-15] MEDS: COLESTIPOL HCL 1 GM TABLET PO SCH ×2 (08:48→20:44)
[2016-10-15] MEDS ORDERED: FUROSEMIDE 20 MG TABLET PO SCH (09:00)
[2016-10-15 10:58] LABS: PROTHROMBIN TIME PATIENT 36.7 SEC (11.7-14.0)
--- NOTE | 2016-10-15 11:33 | PDOC ---
CARDIO Progress Notes Date and Time Date of Service 10/15/2016 Time of Evaluation 1010 Subjective Subjective: No Chest Pain, No shortness of breath, No Palpitations, No Dizziness Vitals Vitals Vital Signs Date Time Temp Pulse Resp B/P (MAP) Pulse Ox O2 Delivery O2 Flow Rate FiO2 10/15/16 08:48 71 134/58 10/15/16 08:05 Room Air 10/15/16 07:00 98.1 18 94 98.1 Weight Weight [ ] Input and Output Intake and Output Intake and Output 10/15/16 07:00 Intake Total 400 ml Output Total 200 ml Balance 200 ml Intake Oral 400 ml Output Urine Total 200 ml # Voids 1 Laboratory Labs Laboratory Tests Test 10/15/16 03:35 10/15/16 10:30 White Blood Count 6.6 x10^3/uL (4.0-11.0) Red Blood Count 3.67 x10^6/uL (3.50-5.40) Hemoglobin 11.5 g/dL (12.0-15.5) Hematocrit 34.7 % (36.0-47.0) Mean Corpuscular Volume 95 fL (79-100) Mean Corpuscular Hemoglobin 31 pg (25-35) Mean Corpuscular Hemoglobin Concent 33 g/dL (31-37) Red Cell Distribution Width 14.0 % (11.5-14.5) Platelet Count 321 x10^3/uL (140-400) Neutrophils (%) (Auto) 64 % (31-73) Lymphocytes (%) (Auto) 21 % (24-48) Monocytes (%) (Auto) 14 % (0-9) Eosinophils (%) (Auto) 1 % (0-3) Basophils (%) (Auto) 0 % (0-3) Neutrophils # (Auto) 4.2 x10^3uL (1.8-7.7) Lymphocytes # (Auto) 1.4 x10^3/uL (1.0-4.8) Monocytes # (Auto) 0.9 x10^3/uL (0.0-1.1) Eosinophils # (Auto) 0.0 x10^3/uL (0.0-0.7) Basophils # (Auto) 0.0 x10^3/uL (0.0-0.2) Sodium Level 135 mmol/L (136-145) Potassium Level 4.2 mmol/L (3.5-5.1) Chloride Level 102 mmol/L (98-107) Carbon Dioxide Level 26 mmol/L (21-32) Anion Gap 7 (6-14) Blood Urea Nitrogen 15 mg/dL (7-20) Creatinine 1.0 mg/dL (0.6-1.0) Estimated GFR (Cockcroft-Gault) 53.2 Glucose Level 100 mg/dL (70-99) Calcium Level 8.9 mg/dL (8.5-10.1) Magnesium Level 1.8 mg/dL (1.8-2.4) Prothrombin Time 36.7 SEC (11.7-14.0) Prothromb Time International Ratio 4.0 (0.8-1.1) Physical Exam HEENT: Neck Supple W Full Motion Chest: Symmetric LUNGS: Clear to Auscultation Heart: S1S2, RRR (Atrial flutter) Abdomen: Soft N/T Extremities: No Calf Tenderness Neurology: alert, oriented, follow commands, other (very [place]) Assessment Assessment 1. Syncope: likely vagal episode with underlying low intravascular volume. Passed out per son (DPOA) while sitting up, no injury 2. 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 3. Likely chronic AFIB/flutter: 140s with activity but otherwise resting at 70s with occasional V pacing, no significant arrhythmia overnight 4. Arrhythmia: no notable NSVT per review. Likely complexes were pacer complexes. Recently seen by Dr. Wolfe at [facility] and was told to be doing fine and normal device functioning 5. Hypothyroidism: TSH 8.2, on replacement, per PCP. 6. HTN: controlled 7. Chronic diarrhea: per PCP Recommendations 1. Baseline TTE 2. Check orthostatic readings 3. Interrogate device to confirm any significant arrhythmias. 4. Currently on warfarin for stroke prevention, hold dose today. Continue with toprol 5. 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 Risks and benefits would need to be reevaluated vs ASA use. Will defer to outpt network engineer administrator. 6. If orthostasis is confirmed, will need to decrease norvasc dosing and promote bill hose use and abdominal binder, and keep track of PO hydration. 7. Also would need to avoid colestipol or use alternative if possible otherwise will need to reschedule as this will bind to meds which is likely why TSH is not therapeutic. 8. Recommend stopping 20 mg lasix especially with her chronic diarrhea. MINESH LIM RIPSAW OPERATOR October 15, 2016 11:33
--- NOTE | 2016-10-15 13:39 | PDOC ---
PROGRESS NOTES Chief Complaint Chief Complaint cc: ? syncope A/P 1. Syncope: possible Vasovagal, Pacer interrogation pending. 2. 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 3. Supra therapeutic INR: Hold INR, No bleeding risk 4. hx of Arrhythmia: She denies any complaints now 5. Hypothyroidism: TSH 8.2, on replacement, repeat TSH in few weeks, practise taking in AM. 6. HTN: controlled 7. Chronic diarrhea: now constipation Hold colestipol at home, Vitals Vitals Vital Signs Date Time Temp Pulse Resp B/P (MAP) Pulse Ox O2 Delivery O2 Flow Rate FiO2 10/15/16 11:59 76 14 125/67 (86) 95 Room Air 10/15/16 11:23 97.9 97.9 Physical Exam General: Alert, Oriented X3, No acute distress Heart: Regular rate, Normal S1, Normal S2 Lungs: Clear Abdomen: Normal bowel sounds Extremities: No clubbing Skin: No rashes, No breakdown, No significant lesion Labs LABS Laboratory Tests Test 10/15/16 03:35 10/15/16 10:30 White Blood Count 6.6 x10^3/uL (4.0-11.0) Red Blood Count 3.67 x10^6/uL (3.50-5.40) Hemoglobin 11.5 g/dL (12.0-15.5) Hematocrit 34.7 % (36.0-47.0) Mean Corpuscular Volume 95 fL (79-100) Mean Corpuscular Hemoglobin 31 pg (25-35) Mean Corpuscular Hemoglobin Concent 33 g/dL (31-37) Red Cell Distribution Width 14.0 % (11.5-14.5) Platelet Count 321 x10^3/uL (140-400) Neutrophils (%) (Auto) 64 % (31-73) Lymphocytes (%) (Auto) 21 % (24-48) Monocytes (%) (Auto) 14 % (0-9) Eosinophils (%) (Auto) 1 % (0-3) Basophils (%) (Auto) 0 % (0-3) Neutrophils # (Auto) 4.2 x10^3uL (1.8-7.7) Lymphocytes # (Auto) 1.4 x10^3/uL (1.0-4.8) Monocytes # (Auto) 0.9 x10^3/uL (0.0-1.1) Eosinophils # (Auto) 0.0 x10^3/uL (0.0-0.7) Basophils # (Auto) 0.0 x10^3/uL (0.0-0.2) Sodium Level 135 mmol/L (136-145) Potassium Level 4.2 mmol/L (3.5-5.1) Chloride Level 102 mmol/L (98-107) Carbon Dioxide Level 26 mmol/L (21-32) Anion Gap 7 (6-14) Blood Urea Nitrogen 15 mg/dL (7-20) Creatinine 1.0 mg/dL (0.6-1.0) Estimated GFR (Cockcroft-Gault) 53.2 Glucose Level 100 mg/dL (70-99) Calcium Level 8.9 mg/dL (8.5-10.1) Magnesium Level 1.8 mg/dL (1.8-2.4) Prothrombin Time 36.7 SEC (11.7-14.0) Prothromb Time International Ratio 4.0 (0.8-1.1) Assessment and Plan Assessmemt and Plan Problems Medical Problems: (1) Encephalopathy acute Status: Acute (2) Opioid overdose Status: Acute Problems: Comment Review of Relevant I have reviewed the following items kenny (where applicable) has been applied. Labs Laboratory Tests Test 10/14/16 08:35 10/14/16 08:52 10/15/16 03:35 10/15/16 10:30 White Blood Count 5.8 x10^3/uL (4.0-11.0) 6.6 x10^3/uL (4.0-11.0) Red Blood Count 4.05 x10^6/uL (3.50-5.40) 3.67 x10^6/uL (3.50-5.40) Hemoglobin 12.6 g/dL (12.0-15.5) 11.5 g/dL (12.0-15.5) Hematocrit 38.4 % (36.0-47.0) 34.7 % (36.0-47.0) Mean Corpuscular Volume 95 fL (79-100) 95 fL (79-100) Mean Corpuscular Hemoglobin 31 pg (25-35) 31 pg (25-35) Mean Corpuscular Hemoglobin Concent 33 g/dL (31-37) 33 g/dL (31-37) Red Cell Distribution Width 14.4 % (11.5-14.5) 14.0 % (11.5-14.5) Platelet Count 362 x10^3/uL (140-400) 321 x10^3/uL (140-400) Neutrophils (%) (Auto) 67 % (31-73) 64 % (31-73) Lymphocytes (%) (Auto) 23 % (24-48) 21 % (24-48) Monocytes (%) (Auto) 9 % (0-9) 14 % (0-9) Eosinophils (%) (Auto) 1 % (0-3) 1 % (0-3) Basophils (%) (Auto) 1 % (0-3) 0 % (0-3) Neutrophils # (Auto) 3.9 x10^3uL (1.8-7.7) 4.2 x10^3uL (1.8-7.7) Lymphocytes # (Auto) 1.3 x10^3/uL (1.0-4.8) 1.4 x10^3/uL (1.0-4.8) Monocytes # (Auto) 0.5 x10^3/uL (0.0-1.1) 0.9 x10^3/uL (0.0-1.1) Eosinophils # (Auto) 0.1 x10^3/uL (0.0-0.7) 0.0 x10^3/uL (0.0-0.7) Basophils # (Auto) 0.1 x10^3/uL (0.0-0.2) 0.0 x10^3/uL (0.0-0.2) Prothrombin Time 33.3 SEC (11.7-14.0) 36.7 SEC (11.7-14.0) Prothromb Time International Ratio 3.5 (0.8-1.1) 4.0 (0.8-1.1) Sodium Level 136 mmol/L (136-145) 135 mmol/L (136-145) Potassium Level 3.9 mmol/L (3.5-5.1) 4.2 mmol/L (3.5-5.1) Chloride Level 102 mmol/L (98-107) 102 mmol/L (98-107) Carbon Dioxide Level 26 mmol/L (21-32) 26 mmol/L (21-32) Anion Gap 8 (6-14) 7 (6-14) Blood Urea Nitrogen 16 mg/dL (7-20) 15 mg/dL (7-20) Creatinine 1.1 mg/dL (0.6-1.0) 1.0 mg/dL (0.6-1.0) Estimated GFR (Cockcroft-Gault) 47.7 53.2 BUN/Creatinine Ratio 15 (6-20) Glucose Level 170 mg/dL (70-99) 100 mg/dL (70-99) Calcium Level 9.0 mg/dL (8.5-10.1) 8.9 mg/dL (8.5-10.1) Magnesium Level 1.9 mg/dL (1.8-2.4) 1.8 mg/dL (1.8-2.4) Total Bilirubin 0.6 mg/dL (0.2-1.0) Aspartate Amino Transf (AST/SGOT) 24 U/L (15-37) Alanine Aminotransferase (ALT/SGPT) 24 U/L (14-59) Alkaline Phosphatase 53 U/L (46-116) Creatine Kinase 32 U/L (26-192) Troponin I Quantitative < 0.017 ng/mL (0.000-0.055) Total Protein 6.9 g/dL (6.4-8.2) Albumin 3.6 g/dL (3.4-5.0) Albumin/Globulin Ratio 1.1 (1.0-1.7) Thyroid Stimulating Hormone (TSH) 8.278 uIU/mL (0.358-3.74) Salicylates Level < 2.8 mg/dL (2.8-20.0) Salicylate Last Dose Date Unknown Salicylate Last Dose Time Unknown Acetaminophen Level < 2 mcg/ml (10-30) Acetaminophen Last Dose Date Unknown Acetaminophen Last Dose Time Unknown Ethyl Alcohol Level < 10 mg/dL (0-10) Urine Collection Type U cath Urine Color Evelin Urine Clarity Clear Urine pH 5.5 Urine Specific Holliday 1.020 Urine Protein Negative mg/dL (NEG-TRACE) Urine Glucose (UA) Negative mg/dL (NEG) Urine Ketones (Stick) Negative mg/dL (NEG) Urine Blood Negative (NEG) Urine Nitrite Negative (NEG) Urine Bilirubin Small (NEG) Urine Urobilinogen Dipstick 0.2 mg/dL (0.2 mg/dL) Urine Leukocyte Esterase Negative (NEG) Urine RBC 0 /HPF (0-2) Urine WBC 0 /HPF (0-4) Urine Amorphous Sediment Present /HPF Urine Bacteria 0 /HPF (0-FEW) Urine Hyaline Casts Few /HPF Urine Opiates Screen Neg (NEG) Urine Methadone Screen Neg (NEG) Urine Barbiturates Neg (NEG) Urine Phencyclidine Screen Neg (NEG) Urine Amphetamine/Methamphetamine Neg (NEG) Urine Benzodiazepines Screen Neg (NEG) Urine Cocaine Screen Neg (NEG) Urine Cannabinoids Screen Neg (NEG) Urine Ethyl Alcohol Neg (NEG) Laboratory Tests Test 10/15/16 03:35 10/15/16 10:30 White Blood Count 6.6 x10^3/uL (4.0-11.0) Red Blood Count 3.67 x10^6/uL (3.50-5.40) Hemoglobin 11.5 g/dL (12.0-15.5) Hematocrit 34.7 % (36.0-47.0) Mean Corpuscular Volume 95 fL (79-100) Mean Corpuscular Hemoglobin 31 pg (25-35) Mean Corpuscular Hemoglobin Concent 33 g/dL (31-37) Red Cell Distribution Width 14.0 % (11.5-14.5) Platelet Count 321 x10^3/uL (140-400) Neutrophils (%) (Auto) 64 % (31-73) Lymphocytes (%) (Auto) 21 % (24-48) Monocytes (%) (Auto) 14 % (0-9) Eosinophils (%) (Auto) 1 % (0-3) Basophils (%) (Auto) 0 % (0-3) Neutrophils # (Auto) 4.2 x10^3uL (1.8-7.7) Lymphocytes # (Auto) 1.4 x10^3/uL (1.0-4.8) Monocytes # (Auto) 0.9 x10^3/uL (0.0-1.1) Eosinophils # (Auto) 0.0 x10^3/uL (0.0-0.7) Basophils # (Auto) 0.0 x10^3/uL (0.0-0.2) Sodium Level 135 mmol/L (136-145) Potassium Level 4.2 mmol/L (3.5-5.1) Chloride Level 102 mmol/L (98-107) Carbon Dioxide Level 26 mmol/L (21-32) Anion Gap 7 (6-14) Blood Urea Nitrogen 15 mg/dL (7-20) Creatinine 1.0 mg/dL (0.6-1.0) Estimated GFR (Cockcroft-Gault) 53.2 Glucose Level 100 mg/dL (70-99) Calcium Level 8.9 mg/dL (8.5-10.1) Magnesium Level 1.8 mg/dL (1.8-2.4) Prothrombin Time 36.7 SEC (11.7-14.0) Prothromb Time International Ratio 4.0 (0.8-1.1) Medications Current Medications Sodium Chloride 1,000 ml @ 1,000 mls/hr 1X ONCE IV Last administered on 09:02; Start 10/14/16 at 08:45; Stop 10/14/16 at 09:44; Status DC Ondansetron HCl (Zofran) 8 mg 1X ONCE IV Last administered on 10/14/16 08:57 ; Start 10/14/16 at 08:45; Stop 10/14/16 at 08:46; Status DC Ondansetron HCl (Zofran) 4 mg PRN Q8HRS PRN IV NAUSEA/VOMITING Last administered on 10/14/16 10:36; Start 10/14/16 at 10:15; Stop 10/15/16 at 10:14 ; Status DC Amlodipine Besylate (Norvasc) 5 mg DAILY PO Last administered on 10/15/16 08: 44; Start 10/15/16 at 09:00 Lisinopril (Prinivil) 20 mg DAILY PO Last administered on 10/15/16 08:48; Start 10/15/16 at 09:00 Metoprolol Succinate (Toprol Xl) 100 mg DAILY PO Last administered on 08:47; Start 10/15/16 at 09:00 Tramadol HCl (Ultram) 50 mg PRN TID PRN PO pain Last administered on 10/14/16 21:16; Start 10/14/16 at 12:15 Warfarin Sodium (Coumadin Per Pharmacy) 1 each PRN DAILY PRN MC SEE COMMENTS Last administered on 10/14/16 14:08; Start 10/14/16 at 12:15 Warfarin Sodium (Coumadin - No Dose Today) 1 each 1X WARF ONCE MC ; Start 10/14 at 16:00; Stop 10/14/16 at 16:01; Status DC Prochlorperazine Edisylate (Compazine) 10 mg PRN Q6HRS PRN IV NAUSEA/VOMITING; Start 10/14/16 at 12:15 Acetaminophen (Tylenol) 1,000 mg PRN QID PRN PO PAIN Last administered on 08:47; Start 10/14/16 at 15:45 Colestipol HCl (Colestid) 1 gm BID PO Last administered on 10/15/16 08:48; Start 10/14/16 at 21:00 Furosemide (Lasix) 20 mg DAILY PO Last administered on 10/15/16 08:47; Start 10/15/16 at 09:00; Stop 10/15/16 at 11:48; Status DC Levothyroxine Sodium (Synthroid) 137 mcg DAILYAC PO Last administered on 08:48; Start 10/15/16 at 07:30 Nystatin (Mycostatin) 1 chris PRN BID PRN TP SKIN BREAKDOWN; Start 10/14/16 at 15 :45; Status Cancel Vitamin D (Vitamin D3) 1,000 unit DAILY PO Last administered on 10/15/16 08:47 ; Start 10/15/16 at 09:00 Lactobacillus Acidophilus (Bacid, Lisa-Bid) 1 tab DAILY PO Last administered on 10/15/16 08:48; Start 10/15/16 at 09:00 Meclizine HCl (Antivert) 25 mg PRN TID PRN PO DIZZINESS; Start 10/14/16 at 16: 00 Multivitamins (Thera M Plus) 1 tab DAILY PO Last administered on 10/15/16 08: 43; Start 10/15/16 at 09:00 Nystatin (Nystop) 1 chris PRN BID PRN TP ITCHING; Start 10/14/16 at 16:00 Active Scripts Active Reported Nystatin 15 Gm Powder 1 Chris TP PRN BID PRN Polyethylene Glycol 3350 255 Gm Powder 17 Gm PO PRN DAILY PRN Docusate Sodium 100 Mg Capsule 1 Cap PO PRN BID PRN Acetaminophen 500 Mg Tablet 2 Tab PO PRN QID PRN Meclizine Hcl 25 Mg Tablet 1 Tab PO PRN TID PRN Warfarin Sodium 3 Mg Tablet 1 Tab PO QMWF Warfarin Sodium 2 Mg Tablet 1 Tab PO QTUTHSASU Colestipol Hcl 1 Gm Tablet 1 Gm PO BID Vitamin D (Cholecalciferol (Vitamin D3)) 2,000 Unit Capsule 1 Cap PO DAILY Multivitamins (Multivitamin) 1 Each Capsule 1 Each PO DAILY Levothyroxine Sodium 137 Mcg Tablet 137 Mcg PO DAILYAC Furosemide 20 Mg Tablet 1 Tab PO DAILY Acidophilus (Lactobacillus Acidophilus) 1 Each Capsule 1 Each PO DAILY Tramadol Hcl 50 Mg Tablet 50 Mg PO Metoprolol Succinate ( Xl ) (Metoprolol Succinate) 100 Mg Tab.er.24h 100 Mg PO Lisinopril 20 Mg Tablet 20 Mg PO Amlodipine Besylate 5 Mg Tablet 5 Mg PO Cyclobenzaprine Hcl 5 Mg Tablet 5 Mg PO Vitals/I & O Vital Sign - Last 24 Hours 10/14/16 10/14/16 10/14/16 10/14/16 14:31 15:23 18:59 20:00 Temp 97.4 97.7 97.4 97.7 Pulse 64 66 Resp 18 14 B/P (MAP) 107/56 (73) 111/58 (75) Pulse Ox 95 95 O2 Delivery Room Air Room Air Room Air Room Air 10/14/16 10/14/16 10/14/16 10/15/16 21:16 22:16 23:10 03:33 Temp 98.1 97.8 98.1 97.8 Pulse 73 85 Resp 16 16 B/P (MAP) 113/54 (73) 117/71 (86) Pulse Ox 95 95 95 96 O2 Delivery Room Air Room Air Room Air Room Air 10/15/16 10/15/16 10/15/16 10/15/16 07:00 08:05 08:44 08:47 Temp 98.1 98.1 Pulse 94 85 77 Resp 18 B/P (MAP) 134/58 (83) 134/58 134/58 Pulse Ox 94 O2 Delivery Room Air Room Air 10/15/16 10/15/16 10/15/16 10/15/16 08:48 11:23 11:54 11:59 Temp 97.9 97.9 Pulse 71 77 71 67 Resp 18 17 17 B/P (MAP) 134/58 151/70 (97) 142/74 (96) 142/81 (101) Pulse Ox 94 96 94 O2 Delivery Room Air Room Air Room Air 10/15/16 11:59 Pulse 76 Resp 14 B/P (MAP) 125/67 (86) Pulse Ox 95 O2 Delivery Room Air Intake and Output 10/14/16 10/14/16 10/15/16 15:00 23:00 07:00 Intake Total 400 ml 0 ml Output Total 100 ml 100 ml Balance 300 ml -100 ml SIMÓN GARCIA MD October 15, 2016 13:39
--- NOTE | 2016-10-15 16:18 | EKG ---
[facility] [address] [place] [address] Test Date: 2016-10-14 Test Time: 10:37:12 Pat Name: DANO MARTINEZ Department: Room: 250 1 Gender: F Revenue [employer] Agent: : [id number] Requested By: YESSICA ARNETT Order Number: [id number] Reading MD: Concha Salgado Measurements Intervals [place] Rate: 109 P: 80 WA: 72 QRS: 48 QRSD: 82 T: -92 QT: 378 QTc: 511 Interpretive Statements CORONARY SINUS RHYTHM VENTRICULARPACED BEATS ABNORMAL ECG RI6.01 Unconfirmed report No previous ECG available for comparison Electronically Signed On 10-15-2016 21:39:16 CDT by Concha Salgado
[2016-10-16 03:15] VITALS: BP 137/73
[2016-10-16 03:43] LABS: INR 2.5 (0.8-1.1); PROTHROMBIN TIME PATIENT 25.6 SEC (11.7-14.0)
[2016-10-16 07:30] VITALS: BP 140/71
[2016-10-16] MEDS: LISINOPRIL 20 MG TABLET PO SCH (08:58)
[2016-10-16] MEDS: MULTIVITAMIN with MINERAL TABLET. PO SCH (08:58)
[2016-10-16] MEDS: CHOLECALCIFEROL (VITAMIN D3) 1,000 UNIT TABLET PO SCH (08:59)
[2016-10-16] MEDS: LEVOTHYROXINE 137 MCG TABLET PO SCH (08:59)
[2016-10-16] MEDS: ACETAMINOPHEN 500 MG TABLET PO PRN (08:59)
[2016-10-16] MEDS: METOPROLOL SUCC 24HR ER 100 MG TAB.ER.24H. PO SCH (08:59)
[2016-10-16] MEDS: LACTOBACILLUS ACIDOPH & BULGAR 1 TABLET. PO SCH (08:59)
[2016-10-16] MEDS: amLODIPine BESYLATE 5 MG TABLET PO SCH (09:00)
[2016-10-16] MEDS: COLESTIPOL HCL 1 GM TABLET PO SCH (09:00)
[2016-10-16 11:00] VITALS: BP 137/63
--- NOTE | 2016-10-16 11:58 | PDOC ---
CARDIO Progress Notes Date and Time Date of Service 10/16/2016 Time of Evaluation 1030 Subjective Subjective: No Chest Pain, No shortness of breath, No Palpitations, No Dizziness Vitals Vitals Vital Signs Date Time Temp Pulse Resp B/P (MAP) Pulse Ox O2 Delivery O2 Flow Rate FiO2 10/16/16 09:00 62 140/71 10/16/16 08:02 Room Air 10/16/16 07:30 98.2 18 92 98.2 Weight Weight [ ] Input and Output Intake and Output Intake and Output 10/16/16 07:00 Intake Total 900 ml Output Total 600 ml Balance 300 ml Intake Oral 900 ml Output Urine Total 600 ml # Voids 4 # Bowel Movements 1 Laboratory Labs Laboratory Tests Test 10/16/16 03:05 Prothrombin Time 25.6 SEC (11.7-14.0) Prothromb Time International Ratio 2.5 (0.8-1.1) Physical Exam HEENT: Neck Supple W Full Motion Chest: Symmetric LUNGS: Clear to Auscultation Heart: S1S2, RRR (A paced) Abdomen: Soft N/T Extremities: No Calf Tenderness Neurology: alert, oriented, follow commands, other (very [place]) Assessment Assessment 1. Syncope: likely vasovagal episode with underlying low intravascular volume. Passed out per son (DPOA) while sitting up, no injury. Negative tox screen. 2. Hx of Tachy denise syndrome with syncope: PPM with normal functioning per interrogation. No significant arrhythmia in relation to #1. 3. PAFIB: intermittent AFIB RVR yesterday. Better overnight. Currently A paced. AFIB burden 14% 4. Hypothyroidism: TSH 8.2, on replacement, per PCP. 5. HTN: controlled 6. Chronic diarrhea: per PCP Recommendations 1. Baseline TTE pending. If unremarkable for significant change then no further w/u. 2. Orthostatic reading borderline. Recommend po hydration adequacy and abd binder when up. 3. Currently on warfarin for stroke prevention,INR 2.5. Continue with toprol. May consider changing norvasc to cardizem (will defer this to her nurse emergency room Dr. Wolfe at [facility]) 4. Also would need to avoid colestipol or use alternative if possible otherwise will need to reschedule as this will potentially bind to meds. 5. Recommend stopping 20 mg lasix especially with her chronic diarrhea. 6. Follow up with her outpt nurse emergency room in 2-3 weeks, anticipate DC this afternoon. MINESH LIM HAIRSPRING SETTER October 16, 2016 11:58
[2016-10-16 14:30] VITALS: BP 140/71
[2016-10-16] MEDS ORDERED: WARFARIN 1 MG TABLET. PO ONE (16:00)
--- NOTE | 2016-10-16 16:47 | CARD ---
APPROVED REPORT EXAM: Two-dimensional and M-mode echocardiogram with Doppler and color Doppler. Other Information Quality : GoodHR: 91bpm Rhythm : Atrial Fibrillation INDICATION Arrhythmia 2D DIMENSIONS RVDd2.9 (2.9-3.5cm)Left Atrium(2D)4.0 (1.6-4.0cm) IVSd1.0 (0.7-1.1cm)Aortic Root(2D)2.4 (2.0-3.7cm) LVDd4.3 (3.9-5.9cm)LVOT Diameter2.2 (1.8-2.4cm) PWd1.0 (0.7-1.1cm)LVDs2.9 (2.5-4.0cm) FS (%) 32.1 %SV50.2 ml LVEF(%)60.5 (>50%) Aortic Valve AI P 1/2 [id number] Pulmonary Valve PV Peak Qsgfsqnc69.8cm/s Tricuspid Valve TR P. [id number]/sTR Peak Gr.33mmHg LEFT VENTRICLE The left ventricle is normal size. There is borderline concentric left ventricular hypertrophy. The l eft ventricular systolic function is normal and the ejection fraction is within normal range. The Eje ction Fraction is 60-65%. There is normal LV segmental wall motion. Tissue Doppler assessment suggest s mild left ventricular diastolic dysfunction. RIGHT VENTRICLE The right ventricle is normal size. There is normal right ventricular wall thickness. The right ventr icular systolic function is normal. ATRIA The left atrium is mildly dilated. The right atrium size is normal. The interatrial septum is intact with no evidence for an atrial septal defect or patent foramen ovale as noted on 2-D or Doppler imagi ng. AORTIC VALVE The aortic valve is mildly sclerotic. The aortic valve is trileaflet. Doppler and Color Flow revealed mild aortic regurgitation. There is no significant aortic valvular stenosis. MITRAL VALVE The mitral valve leaflets are mildly thickened There is no evidence of mitral valve prolapse. There i s no mitral valve stenosis. Doppler and Color Flow revealed mild mitral regurgitation. TRICUSPID VALVE Doppler and Color Flow revealed mild to moderate tricuspid regurgitation. There is no tricuspid valve prolapse or vegetation. There is no tricuspid valve stenosis. PULMONIC VALVE Doppler and Color Flow revealed mild pulmonic valvular regurgitation. There is no pulmonic valvular s tenosis. GREAT VESSELS The aortic root is normal in size. The ascending aorta is normal in size. The pulmonary artery is nor mal. The IVC is normal in size and collapses >50% with inspiration. PERICARDIAL EFFUSION There is no evidence of significant pericardial effusion. Critical Notification Critical Value: No <Conclusion> The left ventricle is normal size. The left ventricular systolic function is normal and the ejection fraction is within normal range. The Ejection Fraction is 60-65%. There is borderline concentric left ventricular hypertrophy. There is no significant aortic valvular stenosis. Doppler and Color Flow revealed mild aortic regurgitation. Doppler and Color Flow revealed mild mitral regurgitation. Doppler and Color Flow revealed mild to moderate tricuspid regurgitation.
--- NOTE | 2016-10-21 12:24 | DS ---
DATE OF DISCHARGE: 10/16/2016 DISCHARGE DIAGNOSES: 1. Syncope, likely due to dehydration, vasovagal in nature. 2. History of tachybrady syndrome with syncope , with permanent pacemaker, normal functioning as per the recent intervention in the hospital. 3. Paroxysmal atrial fibrillation, on oral anticoagulation. 4. Hypothyroidism. 5. Hypertension. 6. Chronic diarrhea, resolved. BRIEF HOSPITAL COURSE: An 81-year-old female patient admitted to the hospital for questionable syncope. Based on the history, symptoms could be due to dehydration and vasovagal in nature. The patient is having diarrhea and also she was on Lasix. During hospitalization, she was placed on telemetry and also her pacemaker was interrogated, which did not show any new findings. Cardiology did an echocardiogram, which did not show any new findings. The patient has been recommended to stop Lasix and also take measures to preventing orthostatic hypotension. She has been scheduled to follow up with Cardiology in 4 weeks. DISCHARGE PHYSICAL EXAMINATION: GENERAL: Alert, oriented x 3. HEART: S1, S2 present. LUNGS: Anterior chest clear. ABDOMEN: Soft, nontender, no organomegaly. EXTREMITIES: No edema. DISCHARGE DISPOSITION: Home. DISCHARGE CONDITION: Stable. FOLLOWUP: With primary care doctor and Cardiology as scheduled. MEDICATIONS: Reviewed and reconciled. Please see my discharge instructions. Total time spent for discharge is 32 minutes for the patient education, counseling and coordination of care. SIMÓN GARCIA MD DR: LISSY/ofelia JOB#: [id number] / [id number] BERTHA
== END 2016-10-16 17:00 | disposition home or self-care (01) | DRG 917 ==
LOC: ER 09:40 → 6 SOUTH 09:55 → 2 SOUTH 12:45
PROVIDERS: ADMIT Internal Medicine; ATTEND Internal Medicine
DX: T40.2X1A Poisoning by other opioids, accidental (unintentional), initial encounter (principal); G92 Toxic encephalopathy; I47.2 Ventricular tachycardia; I48.92 Unspecified atrial flutter; E44.0 Moderate protein-calorie malnutrition; E03.9 Hypothyroidism, unspecified; E78.00 Pure hypercholesterolemia, unspecified; I10 Essential (primary) hypertension; E86.0 Dehydration; I48.0 Paroxysmal atrial fibrillation; K52.9 Noninfective gastroenteritis and colitis, unspecified; I48.2 Chronic atrial fibrillation; Z91.81 History of falling; Z95.0 Presence of cardiac pacemaker; Z88.6 Allergy status to analgesic agent; Z88.8 Allergy status to other drugs, medicaments and biological substances; Z90.710 Acquired absence of both cervix and uterus; Z85.9 Personal history of malignant neoplasm, unspecified; Z86.73 Personal history of transient ischemic attack (TIA), and cerebral infarction without residual deficits; Z82.49 Family history of ischemic heart disease and other diseases of the circulatory system
CPT/HCPCS: 36415; 70450; 80048; 80053; 81001; 82550; 83735; 84443; 84484; 85027; 85610; 93005; 93306; 96361; 96374; G0480; G0481; G6038; J2405; J7030; 80196; 97116; 97535; 99285-25